=== PATIENT | female | born 2005 | race Caucasian/White ===

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

== ENCOUNTER 2024-07-03 16:37 | Emergency (ER) | payer OTHER, SELFPAY ==
[2024-07-03 16:42] VITALS: BP 118/86; PULSE 84; RESP 16; TEMP 37; O2SAT 100; BMI 27.1
--- NOTE | 2024-07-03 17:12 | ED.SKABFB ---
HPI - Skin/Abscess/Foreign Bdy <Awilda Garcia PA-C - Last Filed: 07/03/24 18:56> General Chief complaint: Skin/Abscess/Foreign Body Stated complaint: pain, infected cyst on buttocks Time Seen by Provider: 07/03/24 17:11 Source: patient Mode of arrival: Ambulatory Limitations: no limitations History of Present Illness HPI narrative: Ms. Mitchell is a pleasant 19-year-old female with a past medical history of anxiety who presents to the emergency department for concern of infected cyst on right buttocks x 2 days. Patient states she has had a small lump on her right buttocks ever since getting an IM injection about 3 or 4 months ago. States that she noticed this area getting slightly more swollen and painful about 2 weeks ago 2 days ago it got very swollen, red, hot. Her mom attempted to drain it last night with a needle without success. She is now having pain when she sits down onto the buttocks. Denies fevers, chills, nausea, vomiting, abdominal pain, dysuria, rectal pain, constipation, diarrhea. States she is allergic to penicillins. Reports upset stomach with doxycycline. She is with her grandma who contributes to the history. Related Data Home Medications Medication Instructions Recorded Confirmed ascorbic acid (vitamin C) PO 12/05/22 07/03/24 cetirizine [24Hour Allergy] PO 12/05/22 07/03/24 cholecalciferol (vitamin D3) PO 12/05/22 07/03/24 cranberry extract-vitamin C PO 12/05/22 07/03/24 mecobalamin (vitamin B12) PO 12/05/22 07/03/24 omega-3 fatty acids-fish oil PO 12/05/22 07/03/24 zinc gluconate PO 12/05/22 07/03/24 Previous Rx's Medication Instructions Recorded propranolol 10 mg tablet 10 mg PO TID PRN anxiety #90 tabs 06/05/22 progesterone micronized 100 mg 100 mg PO QAM #90 caps 04/10/23 capsule (Prometrium) escitalopram oxalate 10 mg tablet 10 mg PO DAILY #90 tabs 06/13/23 (Lexapro) sulfamethoxazole 800 1 tab PO Q12H 7 days #14 tabs 07/03/24 mg-trimethoprim 160 mg tablet (Bactrim DS) Allergies Allergy/AdvReac Type Severity Reaction Status Date / Time cefdinir AdvReac Intermediate swelling Verified 07/03/24 16:27 amoxicillin AdvReac Mild Verified 07/03/24 16:27 doxycycline AdvReac Mild Verified 07/03/24 16:27 Penicillins AdvReac Mild Verified 07/03/24 16:27 Review of Systems <Awilda Garcia PA-C - Last Filed: 07/03/24 18:56> Review of Systems ROS Unobtainable: All systems reviewed & are unremarkable except as noted in HPI and below Patient History <Awilda Garcia PA-C - Last Filed: 07/03/24 18:56> Medical History Mononucleosis Social History Smoking Status: Smoker, status unknown Smoking Status: Smoker, status unknown tobacco type: vaping Exam <Awilda Garcia PA-C - Last Filed: 07/03/24 18:56> Narrative Exam Narrative: GENERAL: 19 year old patient appears stated age. Well-developed patient, in no acute distress. CARDIOVASCULAR: Regular rate and rhythm. RESPIRATORY: ?Nonlabored respirations. ?Speaking in clear, full sentences.? GASTROINTESTINAL: In the center of the right buttocks, there is an approximately 2.5 cm round area of induration with some central fluctuance. Approximately 4 cm circular area of erythema overlying. No surrounding streaking erythema. BACK: Nontender without deformity or crepitance. No flank tenderness. NEURO: AOx3. ?Clear speech. ?Moves all 4 extremities appropriately. Initial Vital Signs Initial Vital Signs: Vital Signs Temperature 98.6 F 07/03/24 16:42 Pulse Rate 84 07/03/24 16:42 Respiratory Rate 16 07/03/24 16:42 Blood Pressure 118/86 07/03/24 16:42 Pulse Oximetry 100 07/03/24 16:42 Oxygen Delivery Method Room Air 07/03/24 16:42 <Connie Ambrosio DO - Last Filed: 07/04/24 04:28> Initial Vital Signs Initial Vital Signs: Vital Signs Temperature 98.6 F 07/03/24 16:42 Pulse Rate 84 07/03/24 16:42 Respiratory Rate 16 07/03/24 16:42 Blood Pressure 118/86 07/03/24 16:42 Pulse Oximetry 100 07/03/24 16:42 Oxygen Delivery Method Room Air 07/03/24 16:42 Procedures <Awilda Garcia PA-C - Last Filed: 07/03/24 18:56> Abscess I/D I&D #1: Time of procedure: 18:30 Site: other (right buttocks) Side (if applicable): right Local Anesthetic: lidocaine 1% Amount of anesthesia used (mL): 2 Technique: incised with #11 blade Amount of fluid expressed (mL): 8 Irrigation: Yes Packing used?: none Course <Awilda Garcia PA-C - Last Filed: 07/03/24 18:56> Orders Ordered: Discontinued Medications Hydrocodone Bitart/Acetaminophen (Hydrocodone/Acet 5/325 Tablet) 1 tab PO NOW ONE Stop: 07/03/24 17:23 Last Admin: 07/03/24 17:43 Dose: 1 tab Documented By: ISHMAEL Bacitracin (Bacitracin Oint 0.9 Gm Pckt) 1 applic TOP NOW ONE Stop: 07/03/24 18:38 Last Admin: 07/03/24 18:46 Dose: 1 applic Documented By: LISA Ibuprofen (Ibuprofen 400 Mg Tablet) 400 mg PO NOW ONE Stop: 07/03/24 17:23 Last Admin: 07/03/24 17:41 Dose: 400 mg Documented By: ISHMAEL Ondansetron HCl (Ondansetron 4 Mg Odt) 4 mg SL NOW ONE Stop: 07/03/24 17:23 Last Admin: 07/03/24 17:44 Dose: 4 mg Documented By: ISHMAEL Trimethoprim/Sulfamethoxazole (Trimeth/Sulfa 160/800 (Ds) Tablet) 1 tab PO NOW ONE Stop: 07/03/24 18:38 Last Admin: 07/03/24 18:46 Dose: 1 tab Documented By: LISA Vital Signs Vital signs: Vital Signs - 8 hr 07/03/24 16:42 Temperature 98.6 F Pulse Rate 84 Respiratory Rate 16 Blood Pressure 118/86 Pulse Oximetry 100 Oxygen Delivery Method Room Air <Connie Ambrosio DO - Last Filed: 07/04/24 04:28> Orders Ordered: Discontinued Medications Hydrocodone Bitart/Acetaminophen (Hydrocodone/Acet 5/325 Tablet) 1 tab PO NOW ONE Stop: 07/03/24 17:23 Last Admin: 07/03/24 17:43 Dose: 1 tab Documented By: ISHMAEL Bacitracin (Bacitracin Oint 0.9 Gm Pckt) 1 applic TOP NOW ONE Stop: 07/03/24 18:38 Last Admin: 07/03/24 18:46 Dose: 1 applic Documented By: LISA Ibuprofen (Ibuprofen 400 Mg Tablet) 400 mg PO NOW ONE Stop: 07/03/24 17:23 Last Admin: 07/03/24 17:41 Dose: 400 mg Documented By: ISHMAEL Ondansetron HCl (Ondansetron 4 Mg Odt) 4 mg SL NOW ONE Stop: 07/03/24 17:23 Last Admin: 07/03/24 17:44 Dose: 4 mg Documented By: ISHMAEL Trimethoprim/Sulfamethoxazole (Trimeth/Sulfa 160/800 (Ds) Tablet) 1 tab PO NOW ONE Stop: 07/03/24 18:38 Last Admin: 07/03/24 18:46 Dose: 1 tab Documented By: LISA Vital Signs Vital signs: Vital Signs - 8 hr 07/03/24 16:42 Temperature 98.6 F Pulse Rate 84 Respiratory Rate 16 Blood Pressure 118/86 Pulse Oximetry 100 Oxygen Delivery Method Room Air MDM - Skin/Abscess/Foreign Bdy <Awilda Garcia PA-C - Last Filed: 07/03/24 18:56> Medical Records Attestation: I reviewed the patient's medical records. Lab Data Labs: Point of Care Testing Test Results Negative MDM Narrative Medical decision making narrative: 19-year-old female with a past medical history of anxiety who presents to the emergency department for concern of infected cyst on right buttocks x 2 days. Her grandma contributes to the history. Differential diagnosis includes but is not limited to abscess, infected epidermoid cyst, cellulitis, etc. On exam the patient is in no acute distress, nontoxic appearing, vital signs all within normal limits with a temperature of 98.6?, heart rate 84. Physical exam reveals an abscess on the middle of the right buttocks. No surrounding streaking erythema. Normal vital signs. After shared decision-making with the patient, we will proceed with I and D and wound culture. We will premedicate with ibuprofen, hydrocodone-acetaminophen, Zofran. Patient will then be treated with Bactrim b.i.d. x7 days. Preg neg. I&D performed with moderate amount of purulent drainage expressed. Wound culture obtained. Patient tolerated the procedure very well. Bacitracin and a nonadherent dressing was applied over the incision site. We extensively discussed proper wound care, warm compresses, Sitz bath, signs and symptoms of worsening infection to return to the ED immediately for. She was provided with Hibiclens wash. Advised ibuprofen/Tylenol for pain. Patient feeling much better, both her and her grandma verbalized understanding of all information and she is agreeable to discharge home. Advised PCP follow up in 2-3 days for wound recheck. Patient stable for discharge. <Connie Ambrosio, DO - Last Filed: 07/04/24 04:28> Lab Data Labs: Point of Care Testing Test Results Negative Discharge Plan Departure Patient Disposition: Home Clinical Impression: Abscess of skin or subcutaneous tissue Qualifiers: Site of cutaneous abscess: buttock Qualified Code(s): L02.31 - Cutaneous abscess of buttock Instructions: DI for Incision and Drainage of a Skin Abscess Activity Restrictions/Additional Instructions: Dear Archie Mitchell, Today you were evaluated for pain, redness, swelling on the right buttocks and found to have an abscess. You were given pain medication and an incision and drainage was performed of the abscess. We were able to get a lot of pus out of this area. It is important to use warm compresses and/or Sitz baths as we discussed to allow continued drainage. Please complete the full course of antibiotics. Use ibuprofen and Tylenol as needed for pain and inflammation. Please keep the wound dressing in place for the next 12 hours unless it becomes saturated in which case you can remove it. After 12 hours remove the dressing and clean the wound with Hibiclens, pat dry, then cover with antibiotic ointment and a clean gauze or bandage. Keep this area clean, dry, covered at all times. Please take Ibuprofen (Motrin/Advil) or Acetaminophen (Tylenol) for pain. These are available over the counter. You may take Ibuprofen 600 mg every 8 hours with food for pain. You may also take Acetaminophen 650 mg every 4-6 hours for pain. Do not exceed 3000 mg of Tylenol a day as this can cause liver damage. Do not drink alcohol with either of these medications. Please return to the ER immediately if you develop fevers, increased redness or streaking redness on the buttocks, flu symptoms, vomiting or inability to keep down the antibiotics, or any other concerns. Please follow up with your primary care doctor within the next 2-3 days for ER follow-up and wound re-check. (If you do not have a PCP you can call [phone]. ?to schedule an appointment with an [facility] Primary Care Provider) IF YOU DEVELOP ANY NEW OR WORSENING SYMPTOMS, RETURN TO THE ER! Please read the attached instructions, they highlight more specific treatments and interventions for you at home. Thank you for letting me participate in your care, Awilda Garcia PA-C Prescriptions: New sulfamethoxazole-trimethoprim [Bactrim DS] 800-160 mg tablet 1 tab PO Q12H 7 Days Qty: 14 0RF No Action escitalopram oxalate [Lexapro] 10 mg tablet 10 mg PO DAILY Qty: 90 3RF propranolol 10 mg tablet 10 mg PO TID PRN (Reason: anxiety) Qty: 90 1RF zinc gluconate PO mecobalamin (vitamin B12) PO ascorbic acid (vitamin C) PO cholecalciferol (vitamin D3) PO omega-3 fatty acids-fish oil PO cranberry extract-vitamin C PO cetirizine [24Hour Allergy] PO progesterone micronized [Prometrium] 100 mg capsule 100 mg PO QAM Qty: 90 0RF Rx Instructions: 100mg-200mg, nightly for 7-10 nights a month. Time it so that you are starting at least 7 days after heavier bleed starts. Referrals: Anju Baez DO [Primary Care Provider] - Stand Alone Forms: Patient Portal/API/Survey ED Sign-out <Connie Ambrosio DO - Last Filed: 07/04/24 04:28> Cosign ED Attending Leander Attestation: I was immediately available in the department for consultation.
[2024-07-03] MEDS: IBUPROFEN 400 MG TABLET PO (17:41)
[2024-07-03] MEDS: HYDROCODONE/ACET 5/325 TABLET 1 TAB PO (17:43)
[2024-07-03] MEDS: ONDANSETRON 4 MG ODT SL (17:44)
[2024-07-03] MEDS: BACITRACIN OINT 0.9 GM PCKT 1 APPLIC TOP (18:46)
[2024-07-03] MEDS: TRIMETH/SULFA 160/800 (DS) TABLET 1 TAB PO (18:46)
== END 2024-07-03 19:00 | disposition home or self-care (01) ==
PROVIDERS: Emergency Provider Physician Assistant; PCP Family Medicine
DX: L02.31 Cutaneous abscess of buttock (principal)
CPT/HCPCS: 10060; 81025; 87070; 87075; 87077; 87147; 87186; 87205; 99283

== ENCOUNTER → 2024-11-14 10:28 | Outpatient (CLI) | payer OTHER, SELFPAY ==
[2024-11-15 13:39] LABS: Candida species Positive (Negative); Gardnerella vaginalis Positive (Negative); Trichomoas vaginalis Negative (Negative)
== END ==
LOC: LAB 10:44
PROVIDERS: PCP Family Medicine; Visit Provider Obstetrics & Gynecology
DX: N89.8 Other specified noninflammatory disorders of vagina (principal)
CPT/HCPCS: 81514; 87480; 87510; 87660

== ENCOUNTER 2025-04-28 00:20 | Emergency (ER) | payer OTHER, SELFPAY ==
[2025-04-28 00:46] VITALS: BP 127/75; PULSE 84; RESP 16; TEMP 37; O2SAT 99; BMI 28.5
--- NOTE | 2025-04-28 00:47 | ED_ITS ---
HPI - General Adult General Chief complaint: Skin/Abscess/Foreign Body Stated complaint: R Leg Calf Pain Time Seen by Provider: 04/28/25 00:43 Source: patient, RN notes reviewed and old records reviewed Mode of arrival: Ambulatory Limitations: no limitations History of Present Illness HPI narrative: 19-year-old female with the Lexapro as her only daily medication presents with a complaint of what she thought was a bug bite on the inside of her right calf she states over the past 3 days that has gotten bigger when she took the bandage off today has a little bit excoriated. She notes little bit of redness extending out from the edge and she notes a little bit of purulent drainage. She denies any fevers or chills or other systemic symptoms. She states no other daily medications. She notes she wants had a cyst on her but that required incision and drainage but has not had other skin infections. She notes allergies to amoxicillin and penicillin. She denies any other allergies to medications. Related Data Home Medications ?Medication ?Instructions ?Recorded ?Confirmed ascorbic acid (vitamin C) PO 12/05/22 02/20/25 cetirizine [24Hour Allergy] PO 12/05/22 02/20/25 cholecalciferol (vitamin D3) PO 12/05/22 02/20/25 cranberry extract-vitamin C PO 12/05/22 02/20/25 mecobalamin (vitamin B12) PO 12/05/22 02/20/25 omega-3 fatty acids-fish oil PO 12/05/22 02/20/25 zinc gluconate PO 12/05/22 02/20/25 Previous Rx's ?Medication ?Instructions ?Recorded propranolol 10 mg tablet 10 mg PO TID PRN anxiety #90 tabs 06/05/22 progesterone micronized 100 mg 100 mg PO QAM #90 caps 04/10/23 capsule (Prometrium) escitalopram oxalate 10 mg tablet 10 mg PO DAILY #90 t abs 10/02/24 (Lexapro) fluconazole 150 mg tablet 150 mg PO DAILY #11 tabs clindamycin HCl 300 mg capsule 300 mg PO Q6H 5 days #2 0 caps 04/28/25 (Cleocin HCl) Allergies Allergy/AdvReac Type Severity Reaction Status Date / Time cefdinir AdvReac Intermediate swelling Verified 04/28/25 00:46 amoxicillin AdvReac Mild Verified 04/28/25 00:46 doxycycline AdvReac Mild Verified 04/28/25 00:46 Penicillins AdvReac Mild Verified 04/28/25 00:46 Review of Systems Review of Systems ROS Unobtainable: All systems reviewed & are unremarkable except as noted in HPI and below Patient History Medical History Britany vaginitis Obesity (BMI 30.0-34.9) HSV infection Mononucleosis Social History Smoking Status: Former smoker tobacco type: vaping Exam Narrative Exam Narrative: GENERAL: Alert and oriented x three, female in mild distress HEENT: Head normocephalic, atraumatic, EOMI, pupils reactive, face symmetric, moist mucous membranes NECK: Supple, full range of motion CARDIOVASCULAR: Regular rate and rhythm without murmurs, rubs or gallops. RESPIRATORY: Breath sounds equal bilaterally, no wheezes rales or rhonchi. ABDOMEN: Soft, nontender. Normoactive bowel sounds all 4 quadrants. No guarding or rebound, rigidity, no mass EXTREMITIES: Normal range of motion, no clubbing or edema. Neurovascularly intact. Patient has a 2.4cm circular shaped area of excoriation, there is about a 0.5 cm of erythema extended beyond this, there was no purulent drainage there is some serous drainage, the areas tender to touch. There was no fluctuance, mass or fluid collection appreciated. No other swelling of patient's lower extremity. 2+ pulses bilateral lower extremities. NEUROLOGICAL: Cranial nerves II through XII grossly intact. Moving all extremities. Patient ambulates normally. SKIN: Warm, dry, no petechiae, no rashes or lesions. Initial Vital Signs Initial Vital Signs: Vital Signs Temperature 98.6 F 04/28/25 00:46 Pulse Rate 84 04/28/25 00:46 Respiratory Rate 16 04/28/25 00:46 Blood Pressure 127/75 04/28/25 00:46 Pulse Oximetry 99 04/28/25 00:46 Oxygen Delivery Method Room Air 04/28/25 00:46 Course Orders Ordered: Discontinued Medications Clindamycin HCl (Clindamycin 150 Mg Capsule) 300 mg PO NOW ONE Stop: 04/28/25 00:51 Last Admin: 04/28/25 01:02 Dose: 300 mg Documented By: MICHELET Vital Signs Vital signs: Vital Signs - 8 hr 04/28/25 00:46 Temperature 98.6 F Pulse Rate 84 Respiratory Rate 16 Blood Pressure 127/75 Pulse Oximetry 99 Oxygen Delivery Method Room Air Medical Decision Making MDM Narrative Medical decision making narrative: 19-year-old female who noted a small area that looked like a insect bite on her right calf which has since increased in size in the areas become more excoriated and has some surrounding erythema. Patient appears to be developing a cellulitis no abscess appreciated on exam we will start on oral antibiotic with the wound care return precautions. Patient received an oral antibiotic. Discharge Plan Departure Patient Disposition: Home Clinical Impression: Cellulitis of leg, right Instructions: DI for Cellulitis -- Adult Activity Restrictions/Additional Instructions: Follow up if you are not having any improvement over the next several days. You appear to have developing a cellulitis with a little bit of an ulcer on your lower extremity. Take oral antibiotics until completed. [facility]. Wound Care: Keep wound(s) clean and dry. Wash daily with soap and water only. Pad dry. Do not use over the counter products (alcohol or peroxide)on the wounds unless instructed by a physician. You can use a topical triple antibiotic ointment to the affected area. If wound condition worsens (increased/expanding redness, developing fluid blisters, or worsening pain), either contact your doctor for an urgent re- assessment , or return to the Emergency Department. Return if fever greater than 100.4 Fahrenheit, increased swelling, increasing pa in or worsening symptoms such as increased discharge or spreading redness. Prescriptions: New clindamycin HCl [Cleocin HCl] 300 mg capsule 300 mg PO Q6H 5 Days Qty: 20 0RF No Action fluconazole 150 mg tablet 150 mg PO DAILY Qty: 11 0RF Rx Instructions: Take one tab DAILY by mouth for 7 days (one week), then tablet WEEKLY for 4 weeks escitalopram oxalate [Lexapro] 10 mg tablet 10 mg PO DAILY Qty: 90 3RF propranolol 10 mg tablet 10 mg PO TID PRN (Reason: anxiety) Qty: 90 1RF zinc gluconate PO mecobalamin (vitamin B12) PO ascorbic acid (vitamin C) PO cholecalciferol (vitamin D3) PO omega-3 fatty acids-fish oil PO cranberry extract-vitamin C PO cetirizine [24Hour Allergy] PO progesterone micronized [Prometrium] 100 mg capsule 100 mg PO QAM Qty: 90 0RF Rx Instructions: 100mg-200mg, nightly for 7-10 nights a month. Time it so that you are starting at least 7 days after heavier bleed starts. Referrals: Anju Baez DO [Primary Care Provider, Medical] Stand Alone Forms: Patient Portal/API
[2025-04-28] MEDS: CLINDAMYCIN 150 MG CAPSULE 300 MG PO (01:02)
== END 2025-04-28 01:06 | disposition home or self-care (01) ==
PROVIDERS: Emergency Provider Emergency Medicine; PCP Family Medicine
DX: L03.115 Cellulitis of right lower limb (principal)
CPT/HCPCS: 99283